=== PATIENT | male | born 1990 | race Caucasian/White ===

== ENCOUNTER 2024-01-14 15:13 | Emergency (ER) | payer OTHER, SELFPAY ==
--- NOTE | ~2024-01-14 | US_ITS ---
EXAMINATION: US VENOUS DUPLEX OF THE LOWER EXTREMITIES, BILATERAL CLINICAL INFORMATION: Bilateral lower extremity edema. Evaluate for deep vein thrombosis. COMPARISON: None available. TECHNIQUE: Ultrasound of the deep veins is performed from the hip to the calf with compression sonography and color and pulse Doppler assessment. Spectral analysis with color-flow imaging is performed. FINDINGS: RIGHT: There is normal venous compression and respiratory variation and augmented flow. The visualized common femoral vein, superficial femoral vein, profunda femoral vein, popliteal vein, and the trifurcation region shows no evidence of deep venous thrombosis. The right peroneal vein is not well-visualized. There is no significant popliteal fossa cyst. Mildly prominent right inguinal lymph node. Lower leg subcutaneous edema. LEFT: There is normal venous compression and respiratory variation and augmented flow. The visualized common femoral vein, superficial femoral vein, profunda femoral vein, popliteal vein, and the trifurcation region shows no evidence of deep venous thrombosis. There is no significant popliteal fossa cyst. Mildly prominent left inguinal lymph node. Lower leg subcutaneous edema. If the patient's symptoms persist, followup ultrasound in 5 days 7 days might be of value to exclude proximal propagation from a non-visualized calf vein. US/US venous duplex LE BI IMPRESSION: 1. No DVT demonstrated in the bilateral lower extremity. 2. Bilateral lower leg subcutaneous edema.
--- NOTE | ~2024-01-14 | XR_ITS ---
EXAMINATION: XR CHEST CLINICAL INFORMATION: Shortness of breath. COMPARISON: None available. TECHNIQUE: 2 views of the chest were obtained. FINDINGS: The lungs are clear. The cardiomediastinal silhouette is normal in size. There is no pleural effusion or pneumothorax. No acute osseous abnormality. XR/XR chest 2V IMPRESSION: No acute cardiopulmonary findings.
[2024-01-14 15:17] VITALS: BP 137/99; PULSE 92; RESP 18; TEMP 36.6; O2SAT 98; BMI 34.6
--- NOTE | 2024-01-14 15:17 | ED_ITS ---
HPI - General Adult General Chief complaint: General Medical Stated complaint: SOB Time Seen by Provider: 01/14/24 16:14 Source: patient Mode of arrival: ambulatory Limitations: no limitations History of Present Illness HPI narrative: Patient is 33 years old otherwise healthy nonalcoholic been having anasarca for last 3 months been to PCP and [facility] had a detailed workup without final diagnosis noticed to have low albumin level etiology not very clear patient not aware of the cause comes here as swelling is getting worse now spreading to the abdomen feels exhausted no significant shortness of breath was given diuretic for short time has not seen any keno clerk or supervisor vegetable farming yet Related Data Allergies Allergy/AdvReac Type Severity Reaction Status Date / Time No Known Allergies Allergy Verified 01/14/24 15:23 Review of Systems 2 Review of Systems: Yes all other systems are reviewed and are negative FORMERLY [facility], [facility]1983 Social History Social History Smoked in Last 30 Days: No Use of substances other than those prescribed or required for medical reasons: No Advance Directives: No Advance Directives Information Provided: No Do you have a plan to hurt others: No Plan Physical Exam ED Vital Signs: Vital Signs - 24 hr 01/14/24 15:17 01/14/24 17:37 01/14/24 18:36 Temperature 97.8 F 97.9 F Pulse Rate 92 92 Respiratory Rate 18 15 Blood Pressure 137/99 H 135/91 H 135/91 H Pulse Oximetry 98 97 Oxygen Delivery Method Room Air Room Air 01/14/24 19:24 Temperature 98 F Pulse Rate 67 Respiratory Rate 16 Blood Pressure 130/72 Pulse Oximetry 99 Oxygen Delivery Method Room Air BMI result Body Mass Index 34.6 Appearance: Alert. Oriented X3. No acute distress. Eyes: PERRLA, No Nystagmus no pallor or icterus ENT: Pharynx normal. Oral Mucosa moist Neck: Normal inspection. Neck supple. CVS: Normal heart rate and rhythm. Pulses normal. Respiratory: No respiratory distress. Equal air entry bilateral, no wheezing/rales/rhonchi Abdomen: Soft and nontender. Bowel sounds are present, no mass palpable, no CVA tenderness Skin: Skin warm and dry. Normal skin color. Normal skin turgor. Extremities: 3+ lower extremity edema. No calf tenderness Neuro: Oriented X 3. No motor deficit. No sensory deficit.No cerebellar signs , cranial nerves II-XII intact Course Course Course Narrative: RME performed by Rylie Smiley PA-C. Patient is a 33 year old assigned male at presenting to the emergency department with bilateral lower extremity swelling and abdominal swelling over the last 3 months. Patient states that he is having worsening shortness of breath. Patient was seen at [facility] who recommended he get an echocardiogram and suggested it may be his thyroid. Patient states that he was also seen at [facility] and they told him everything was fine. No drug or alcohol use. Sent here from [facility] urgent care. Detailed physical exam and review of systems are deferred to the weight engineer. Labs, imaging, and swabs ordered. Patient placed back in the waiting room pending room availability and results. Medications Administered Discontinued Medications Generic Name Dose Route Start Last Admin Trade Name Freq PRN Reason Stop Dose Admin Furosemide 20 mg 01/14/24 18:11 01/14/24 18:36 Furosemide 20 Mg Tablet PO 01/14/24 18:12 20 mg ONCE ONE Administration Protocol Medical Decision Making Medical Decision Making [facility] Narrative: Patient with generalized anasarca with significant hypoalbuminemia etiology not very clear according to patient he does not have any kidney or liver problems in the past. Will check the urine to see whether he has a proteinuria and check l old records Patient labs showed heavy proteinuria likely nephrotic range as the cause for anasarca . Case discussed with supervisor vegetable farming , will see him in office as outpatient Differential Diagnosis Differential Diagnoses: The differential diagnosis associated with the presentation includes Hepatic failure/nephrotic syndrome/dependent edema Lab Data [facility] Lab Attestation statement: I reviewed the patient's lab results. 01/14/24 15:35 01/14/24 15:35 Labs: Lab Results 01/14/24 01/14/24 Range/Units 15:35 18:26 WBC 10.0 (4.8-10.8) X10*3/uL RBC 4.64 (4.60-5.80) X10*6/uL Hgb 14.3 (14.0-18.0) g/dl Hct 42.4 (42.0-52.0) % MCV 91.4 (80.0-98.0) fL MCH 30.8 (27.0-33.0) pg MCHC 33.7 (31.0-36.0) g/dl RDW 12.9 (11.0-16.0) % Plt Count 254 (160-400) X10*3/uL MPV 11.0 (9.4-12.4) fL Immature Gran % (Auto) 0.3 (0.0-0.4) % Neut % (Auto) 64.6 (45-73) % Lymph % (Auto) 26.0 (20-40) % Coleman % (Auto) 4.9 (2-11) % Eos % (Auto) 3.8 (0-4) % Baso % (Auto) 0.4 (0-2) % Lymph # (Auto) 2.6 (1.2-4.9) X10*3/uL Coleman # (Auto) 0.5 (0.1-1.2) X10*3/uL Eos # (Auto) 0.4 (0.0-0.4) X10*3/uL Baso # (Auto) 0.0 (0.0-0.2) X10*3/uL Abs Immat Gran (auto) 0.03 (0.00-0.03) X10*3/uL Absolute Neuts (auto) 6.5 (2.0-8.3) x10*3/uL Absolute Nucleated RBC 0.000 (0.0-0.012) X10*3/uL Nucleated RBC % (auto) 0.0 (0.0-0.2) /100WBC Sodium 141 (135-145) mmol/L Potassium 4.3 (3.3-5.1) mmol/L Chloride 105 (96-108) mmol/L Carbon Dioxide 30 H (22-29) mmol/L Anion Gap 10 L (12-20) BUN 12 (9-16) mg/dL Creatinine 0.93 (0.5-1.4) mg/dL Estim Creat Clear Calc 136.9 Estimated GFR > 60 Random Glucose 85 (60-115) mg/dL Calcium 8.2 L (8.4-10.2) mg/dL Magnesium 1.9 (1.6-2.6) mg/dL Total Bilirubin 0.2 (0.0-1.0) mg/dL AST 23 (5-37) U/L ALT 18 (0-40) U/L Alkaline Phosphatase 90 (39-117) U/L Ammonia 26 (13-55) umol/L Troponin I High Sens 7.7 (<3.5-35.0) ng/L B-Natriuretic Peptide 15 (<100) pg/mL Total Protein 4.2 L (6.5-8.0) g/dL Albumin 1.5 L (3.5-5.0) g/dL TSH 1.03 (0.32-4.0) uIU/mL Urine Color Dark Yellow Urine Appearance Clear Urine pH 6.0 (5.0-9.0) Ur Specific Pierre >= 1.030 H (1.005-1.025) Urine Protein >=1000 (4+) H (Neg-Trace) mg/dL Urine Glucose (UA) Negative (Negative) mg/dL Urine Ketones Negative (Negative) mg/dL Urine Blood Moderate (2+) H (Negative) Urine Nitrite Negative (Negative) Ur Leukocyte Esterase Negative (Negative) Urine RBC 11-20 H (0-2) /HPF Urine WBC 0-5 (0-5) /HPF Ur Squamous Epith Cells 6-10 (0-2) /HPF Urine Bacteria None Seen (None Seen) Hyaline Casts >20 (0-2) /LPF External Record Review External record reviewed: Outpatient record Patient's medical records from [facility] on 12/08/[address] scan of the abdominal was negative workup showed 2+ proteinuria BNP was 51 serum protein was 4.6 albumin was 2.0 Discharge Plan Discharge Clinical Impression: Nephrotic syndrome Patient Disposition: Home, Self-Care Instructions: Edema (ED) Additional Instructions: Increase protein intake You have to see kidney specialist as soon as possible for further management as you are losing protein in the urine Keep your legs elevated Referrals: Mark Polanco MD [Physician] - 1 week Interventions: ED Discharge Assessment Last Done: 01/14/24 19:24 Discharge Date/Time: 01/14/24 19:25 Print Language: Tuvaluan
--- NOTE | 2024-01-14 15:21 | ECG_ITS ---
Test Reason : SOB Blood Pressure : / mmHG Vent. Rate : 087 BPM Atrial Rate : 087 BPM P-R Int : 156 ms QRS Dur : 090 ms QT Int : 354 ms P-R-T Axes : 060 035 047 degrees QTc Int : 425 ms Normal sinus rhythm Normal ECG When compared with ECG of 27-JAN-2009 08:48, ST no longer elevated in Anterior leads Referred By: Rylie Smiley Electronically Signed By:JUDY MEDELLIN MD
[2024-01-14 15:40] LABS: MANUAL DIFF FLAG NO
[2024-01-14 15:47] LABS: Basophils Percent Auto 0.4 % (0-2); Eosinophils Absolute Auto 0.4 X10*3/uL (0.0-0.4); Eosinophils Percent Auto 3.8 % (0-4); Hematocrit 42.4 % (42.0-52.0); Hemoglobin 14.3 g/dl (14.0-18.0); Imm Gran Abs Auto 0.03 X10*3/uL (0.00-0.03); Imm Gran Pct Auto 0.3 % (0.0-0.4); Lymphocytes Absolute Auto 2.6 X10*3/uL (1.2-4.9); Mean Corpuscular HGB Conc 33.7 g/dl (31.0-36.0); Mean Corpuscular Hemoglobin 30.8 pg (27.0-33.0); Mean Corpuscular Volume 91.4 fL (80.0-98.0); Monocytes Absolute Auto 0.5 X10*3/uL (0.1-1.2); Monocytes Percent Auto 4.9 % (2-11); Neutrophils Absolute Auto 6.5 x10*3/uL (2.0-8.3); Neutrophils Percent Auto 64.6 % (45-73); Platelet Count 254 X10*3/uL (160-400); Red Blood Count 4.64 X10*6/uL (4.60-5.80); Red Cell Distribution Width 12.9 % (11.0-16.0)
[2024-01-14 15:55] LABS: Ammonia 26 umol/L (13-55)
[2024-01-14 16:08] LABS: Alanine Aminotransferase 18 U/L (0-40); Albumin Level 1.5 g/dL (3.5-5.0); Alkaline Phosphatase 90 U/L (39-117); Anion Gap 10 (12-20); Aspartate Amino Transferase 23 U/L (5-37); Bilirubin Total 0.2 mg/dL (0.0-1.0); Blood Urea Nitrogen 12 mg/dL (9-16); Calcium 8.2 mg/dL (8.4-10.2); Carbon Dioxide 30 mmol/L (22-29); Chloride 105 mmol/L (96-108); Creatinine Clr Calc Pharmacy 136.9; Estimated Glomerular Filt Rate > 60; Glucose Random 85 mg/dL (60-115); Magnesium 1.9 mg/dL (1.6-2.6); Potassium 4.3 mmol/L (3.3-5.1); Sodium 141 mmol/L (135-145); Total Protein 4.2 g/dL (6.5-8.0)
[2024-01-14 16:10] LABS: Troponin-I High Sensitivity 7.7 ng/L (<3.5-35.0)
[2024-01-14 16:23] LABS: B Type Natriuretic Peptide 15 pg/mL (<100)
[2024-01-14 16:24] LABS: TSH reflex Free T4 1.03 uIU/mL (0.32-4.0)
[2024-01-14 17:37] VITALS: BP 135/91; PULSE 92; RESP 15; TEMP 36.6; O2SAT 97
[2024-01-14 18:32] LABS: Appearance Urine Clear; Color Urine Dark Yellow; Glucose Urine UA Negative (Negative); Leukocyte Esterase Urine Negative (Negative); Nitrite Urine Negative (Negative); Specific Gravity - Urine >= 1.030 (1.005-1.025); UMIC TRIGGER UACC YES; Urine Blood Moderate (2+) (Negative); Urine Ketones Negative (Negative); Urine Protein >=1000 (4+) mg/dL (Neg-Trace)
[2024-01-14 18:36] VITALS: BP 135/91
[2024-01-14] MEDS: Furosemide 20 MG TABLET PO (18:36)
[2024-01-14 18:44] LABS: Bacteria Urine None Seen (None Seen); Hyaline Casts Urine >20 /LPF (0-2); WBC Urine 0-5 /HPF (0-5)
[2024-01-14 19:24] VITALS: BP 130/72; PULSE 67; RESP 16; TEMP 36.6; O2SAT 99
== END 2024-01-14 19:25 | disposition home or self-care (01) ==
PROVIDERS: Physician Assistant Medical; Emergency Provider Internal Medicine
DX: N04.9 Nephrotic syndrome with unspecified morphologic changes (principal)
CPT/HCPCS: 36415; 71046; 80053; 81001; 82140; 83735; 83880; 84443; 84484; 85025; 93005; 93970; 99284; 99285

== ENCOUNTER → 2024-01-14 15:21 | Outpatient (BNV) | payer OTHER, SELFPAY | PROVIDERS: Emergency Provider Internal Medicine; Visit Provider Internal Medicine Cardiovascular Disease | DX: R06.02 Shortness of breath (principal) | CPT/HCPCS: 93010 ==

== ENCOUNTER 2024-01-20 14:44 | Outpatient (REF) | payer OTHER, SELFPAY ==
[2024-01-20 15:53] LABS: MANUAL DIFF FLAG NO
[2024-01-20 18:08] LABS: INTERNATIONAL NORM RATIO 0.9 (0.9-1.1)
[2024-01-20 18:34] LABS: Basophils Absolute Auto 0.1 X10*3/uL (0.0-0.2); Basophils Percent Auto 0.7 % (0-2); Eosinophils Absolute Auto 0.3 X10*3/uL (0.0-0.4); Eosinophils Percent Auto 4.5 % (0-4); Hematocrit 44.1 % (42.0-52.0); Hemoglobin 14.9 g/dl (14.0-18.0); Imm Gran Abs Auto 0.03 X10*3/uL (0.00-0.03); Imm Gran Pct Auto 0.4 % (0.0-0.4); Lymphocytes Absolute Auto 2.3 X10*3/uL (1.2-4.9); Lymphocytes Percent Auto 29.7 % (20-40); Mean Corpuscular HGB Conc 33.8 g/dl (31.0-36.0); Mean Corpuscular Hemoglobin 31.3 pg (27.0-33.0); Mean Corpuscular Volume 92.6 fL (80.0-98.0); Monocytes Absolute Auto 0.5 X10*3/uL (0.1-1.2); Monocytes Percent Auto 5.9 % (2-11); Neutrophils Absolute Auto 4.5 x10*3/uL (2.0-8.3); Neutrophils Percent Auto 58.8 % (45-73); Platelet Count 271 X10*3/uL (160-400); Red Blood Count 4.76 X10*6/uL (4.60-5.80); Red Cell Distribution Width 12.7 % (11.0-16.0); White Blood Count 7.6 X10*3/uL (4.8-10.8)
[2024-01-20 19:03] LABS: TSH reflex Free T4 1.28 uIU/mL (0.32-4.0)
[2024-01-20 19:06] LABS: Creatinine Urine 162.03 mg/dL
[2024-01-20 19:11] LABS: Anion Gap 10 (12-20); Blood Urea Nitrogen 14 mg/dL (9-16); Carbon Dioxide 28 mmol/L (22-29); Chloride 103 mmol/L (96-108); Estimated Glomerular Filt Rate > 60; Potassium 3.8 mmol/L (3.3-5.1); Sodium 137 mmol/L (135-145)
[2024-01-20 19:44] LABS: Protein/Creatinine Ratio, Ur 11.65 (<0.2); Total Protein Urine Random 1887 mg/dL (<12)
[2024-01-21 03:35] LABS: HIV Num 1 0.04 S/CO (0.00-0.99); Hepatitis B Core Antibody Nonreactive (Nonreactive); ~HepC Num1 0.16 S/CO (0.00-0.79); ~Hepatitis C Antibody Nonreactive (Nonreactive)
[2024-01-21 03:36] LABS: HBsAGNum1 0.15 S/CO (0.00-0.99); HIV AB/AG Nonreactive (Nonreactive); Hepatitis B Surface Antigen Negative (Negative)
[2024-01-21 05:37] LABS: Estimated Average Glucose 97 mg/dL
[2024-01-23 13:44] LABS: Anti DNA DS Antibody <1 IU/mL; Anti Glomerular Basement Memb <1.0 AI; Myeloperoxidase Antibody <1.0 AI; Proteinase 3 PR3 Antibodies <1.0 AI
[2024-01-23 21:34] LABS: Streptolysin O Antibody <20 IU/mL (<200)
[2024-01-24 06:43] LABS: Complement C3 164 mg/dL (82-185)
[2024-01-24 09:38] LABS: Anti Nuclear Antibody Screen POSITIVE (NEGATIVE)
[2024-01-24 10:44] LABS: Neutrophil Cyto Ab Screen NEGATIVE (NEGATIVE)
[2024-01-25 16:18] LABS: IgA 185 mg/dL (47-310); IgG 383 mg/dL (600-1640); IgM 74 mg/dL (50-300)
[2024-01-31 10:48] LABS: Phospholipase A2 IgG ELISA <4 RU/mL; Phospholipase A2 IgG IFA NEGATIVE (NEGATIVE)
== END 2024-01-20 14:45 | disposition home or self-care (01) ==
LOC: HO.LAB 14:44
PROVIDERS: Visit Provider Internal Medicine Nephrology
DX: Z11.4 Encounter for screening for human immunodeficiency virus [HIV] (principal); R80.8 Other proteinuria; N04.9 Nephrotic syndrome with unspecified morphologic changes
CPT/HCPCS: 80051; 82565; 82570; 82784; 83036; 83520; 84156; 84443; 84520; 85025; 85610; 86021; 86036; 86038; 86039; 86060; 86160; 86225; 86255; 86334; 86335; 86704; 86803; 87340; 87389; 99202

== ENCOUNTER 2024-01-20 14:44 | Outpatient (AMB) | payer OTHER, SELFPAY ==
--- NOTE | 2024-01-20 14:40 | HO.NEPHOV_ITS ---
Vital Signs 01/20/24 14:48 Height 6 ft 1 in Weight 233 lb 6 oz BMI 30.8 BP 130/80 Blood Pressure Location Lt brachial Position Sitting Pulse 91 Pulse Source Pulse Oximeter Pulse Oximetry (%) 96 Oxygen Delivery Method Room Air Intake Visit Reasons: [facility] Discharger/ LM Kn[employer] Press Hand Required: No Accompanied by: Self / Same As Patient Allergies No Known Allergies Allergy (Verified 01/20/24 14:51) HPI Comments Details: I had the privilege of seeing Wayne who has a 33 years old healthy nonalcoholic who has been having anasarca for last 3 months. He had been seen by PCP , [facility], [place] urgent care as well as in [facility] emergency room. He was told by physicians in [facility] that his thyroid functions were off and was started on levothyroxine. He continued to have workup without final diagnosis but noticed to have low albumin level . Etiology was not very clear but finally patient presented to [facility] Emergency room where he was found to have nephrotic range proteinuria and was determined that it is the cause of his anasarca. As per the patient he had two separate occasions very was given diuretics, once for 5 days and 1 time dose on another occasion. He denies any joint pains, skin rashes, epistaxis, sinusitis, sore throat, photosensitivity, history of drug use, history of hepatitis or HIV. He has no history of coronary artery disease, congestive heart failure, peripheral arterial disease, vascular disease, history of excessive nonsteroidal anti-inflammatory medication use, night sweats, fever. He has not traveled outside [place] recently. All these symptoms have been getting worse over the last 3 months to a point now that he has penile swelling, scrotal swelling and subcutaneous edema on the flanks, back and abdomen. He was referred to me from [facility] Emergency room and is seen today in consultation. [facility] Surgical History (Updated 01/20/24 @ 14:50 by Renee Arredondo MA) Hx of tonsillectomy Social History (Updated 01/20/24 @ 14:51 by Renee Arredondo MA) Alcohol intake: never Patient Tobacco Use Status: Never used Tobacco e-Cigarette/Vaping Use: Currently Using Physical Exam Vital Signs: Last Vital Signs Pulse 91 01/20/24 14:48 BP 130/80 01/20/24 14:48 Pulse Ox 96 01/20/24 14:48 Oxygen Delivery Method Room Air 01/20/24 14:48 BMI result Body Mass Index 30.8 Const General: comfortable and no acute distress Orientation/consciousness: patient oriented x3 HEENT Head: Yes normocephalic Mouth: Normal oral and palatal mucosa present Eyes EOM: EOMs intact bilaterally Neck Neck: Yes supple Resp Auscultation: clear to auscultation bilaterally Cardio Jugular venous distension: no JVD Rate: regular rate GI Palpation (GI): Soft to palpation Auscultation: normal bowel sounds General: Yes no CVA tenderness Back/Spine/Pelvis Back: no CVA tenderness Skin General skin exam: no rashes or lesions noted Neuro General: patient oriented x3 and moves all extremities Extrem General: Yes edema Results Reviewed Nephrology Results: Hgb 14.9 g/dl (14.0-18.0) 01/20/24 WBC 7.6 X10*3/uL (4.8-10.8) 01/20/24 Plt Count 271 X10*3/uL (160-400) 01/20/24 Sodium 137 mmol/L (135-145) 01/20/24 Potassium 3.8 mmol/L (3.3-5.1) 01/20/24 Chloride 103 mmol/L (96-108) 01/20/24 Carbon Dioxide 28 mmol/L (22-29) 01/20/24 BUN 14 mg/dL (9-16) 01/20/24 Creatinine 0.85 mg/dL (0.5-1.4) 01/20/24 Calcium 8.2 mg/dL (8.4-10.2) L 01/14/24 Urine Protein >=1000 (4+) mg/dL (Neg-Trace) H 4 Urine Creatinine 162.03 mg/dL 01/20/24 Protein/Creatinin Ratio 11.65 (<0.2) H 01/20/24 Assessment & Plan Assessment & Plan (1) Proteinuria: Code(s): R80.9 - Proteinuria, unspecified Category: Medical Qualifiers: Proteinuria type: other Qualified Code(s): R80.8 - Other proteinuria (2) Nephrotic syndrome: Code(s): N04.9 - Nephrotic syndrome with unspecified morphologic changes Category: Medical Plan Wayne has nephrotic syndrome. He is 30 lb over his dry weight. His renal functions are normal. I ordered extensive workup including imaging, immunology, serology as well as renal biopsy. I started him on diuretics, ARB, prednisone along with PPI. He was also asked to cut back salt in the diet. He should be weighing himself every day. Detection of his recent thyroid dysfunction most likely is due to his nephrotic syndrome but further workup should be done. He is going to repeat his electrolytes and renal functions in a week again after initiation of all the medications. All these have been discussed in detail. Patient has expressed his understanding. All questions answered. Follow-up appointment given. Time spent for retrieving data, clinical encounter and documentation 61 minutes. Orders: Orders Anti Glomerular Basement Memb 01/20/24 R80.8 - Other proteinuria Complement C4 01/20/24 R80.8 - Other proteinuria Streptolysin O Antibody 01/20/24 R80.8 - Other proteinuria Phospholipase A2 Receptor Pnl 01/20/24 R80.8 - Other proteinuria Immunofixation, Random Urine 01/20/24 R80.8 - Other proteinuria Hemoglobin A1c 01/20/24 R80.8 - Other proteinuria Hepatitis C Antibody Reflex 01/20/24 R80.8 - Other proteinuria Hepatitis B Surface Antigen 01/20/24 R80.8 - Other proteinuria HIV Ab/Ag 01/20/24 R80.8 - Other proteinuria CT biopsy renal LT 01/20/24 R80.8 - Other proteinuria Protein Creatinine Ratio, Ur 01/20/24 R80.8 - Other proteinuria Electrolytes 01/20/24 R80.8 - Other proteinuria Creatinine 01/20/24 R80.8 - Other proteinuria SCOTT Reflex Titer and Pattern 01/20/24 R80.8 - Other proteinuria Anti DNA DS Antibody 01/20/24 R80.8 - Other proteinuria Neutrophil Cytoplasma Ab 01/20/24 R80.8 - Other proteinuria Myeloperoxidase Antibody 01/20/24 R80.8 - Other proteinuria Proteinase 3 PR3 Antibodies 01/20/24 R80.8 - Other proteinuria Complement C3 01/20/24 R80.8 - Other proteinuria Immunofixation Pnl, Serum 01/20/24 R80.8 - Other proteinuria Complete Blood Count Auto Diff 01/20/24 R80.8 - Other proteinuria Prothrombin Time INR 01/20/24 R80.8 - Other proteinuria TSH reflex Free T4 01/20/24 R80.8 - Other proteinuria Hepatitis B Core Antibody 01/20/24 R80.8 - Other proteinuria Blood Urea Nitrogen 01/20/24 R80.8 - Other proteinuria Creatinine 01/20/24 R80.8 - Other proteinuria Blood Urea Nitrogen 01/20/24 R80.8 - Other proteinuria Electrolytes 01/20/24 R80.8 - Other proteinuria Medications: New losartan 25 mg PO DAILY 30 tabs 0RF furosemide (Lasix) 40 mg PO DAILY 30 tabs 0RF prednisone 60 mg (6 x 10 mg) PO DAILY 180 tabs 0RF 30 days omeprazole 20 mg PO DAILY 30 caps 0RF Coding Level of Care Code New Pt Level 5 (95557) Diagnoses Other proteinuria R80.8 Proteinuria type: other Nephrotic syndrome N04.9
[2024-01-20 14:48] VITALS: BP 130/80; PULSE 91; O2SAT 96; BMI 30.8
== END 2024-01-20 15:25 | disposition home or self-care (01) ==
PROVIDERS: Visit Provider Internal Medicine Nephrology
DX: N04.9 Nephrotic syndrome with unspecified morphologic changes (principal); R80.8 Other proteinuria
CPT/HCPCS: 99205

== ENCOUNTER 2024-01-26 14:50 | Outpatient (REF) | payer OTHER, SELFPAY ==
[2024-01-26 16:38] LABS: Blood Urea Nitrogen 12 mg/dL (9-16); Estimated Glomerular Filt Rate > 60
== END 2024-01-26 14:51 | disposition home or self-care (01) ==
LOC: HO.LAB 14:50
PROVIDERS: PCP Physician Assistant; Visit Provider Internal Medicine Nephrology
DX: R80.8 Other proteinuria (principal)
CPT/HCPCS: 36415; 82565; 84520

== ENCOUNTER 2024-01-27 15:12 | Outpatient (AMB) | payer OTHER, SELFPAY ==
--- NOTE | 2024-01-27 15:18 | HO.NEPHOV_ITS ---
Vital Signs 01/27/24 15:19 Height 6 ft 1 in Weight 214 lb BMI 28.2 BP 118/82 Blood Pressure Location Rt brachial Position Sitting Pulse 77 Pulse Source Pulse Oximeter Pulse Oximetry (%) 94 Oxygen Delivery Method Room Air Intake Visit Reasons: Proteinuria/ 1 week fu/ Confirmed Advertising Manager Required: No Accompanied by: Self / Same As Patient Allergies No Known Allergies Allergy (Verified 01/27/24 15:21) HPI Comments Details: I had the privilege of seeing Wayne who has a 33 years old healthy nonalcoholic who has been having anasarca for last 3 months. He had been seen by PCP , [facility], [place] urgent care as well as in [facility] emergency room. He was told by physicians in [facility] that his thyroid functions were off and was started on levothyroxine. He continued to have workup without final diagnosis but noticed to have low albumin level . Etiology was not very clear but finally patient presented to [facility] Emergency room where he was found to have nephrotic range proteinuria and was determined that it is the cause of his anasarca. As per the patient he had two separate occasions very was given diuretics, once for 5 days and 1 time dose on another occasion. He denies any joint pains, skin rashes, epistaxis, sinusitis, sore throat, photosensitivity, history of drug use, history of hepatitis or HIV. He has no history of coronary artery disease, congestive heart failure, peripheral arterial disease, vascular disease, history of excessive nonsteroidal anti-inflammatory medication use, night sweats, fever. He has not traveled outside [place] recently. All these symptoms have been getting worse over the last 3 months to a point now that he has penile swelling, scrotal swelling and subcutaneous edema on the flanks, back and abdomen. He was found to have nephrotic range proteinuria and was started on Prednisone, losartan and lasix. [facility] Surgical History Hx of tonsillectomy Social History Alcohol intake: never Patient Tobacco Use Status: Never used Tobacco e-Cigarette/Vaping Use: Currently Using Physical Exam Vital Signs: Last Vital Signs Pulse 77 01/27/24 15:19 BP 118/82 01/27/24 15:19 Pulse Ox 94 01/27/24 15:19 Oxygen Delivery Method Room Air 01/27/24 15:19 BMI result Body Mass Index 28.2 Const General: comfortable and no acute distress Orientation/consciousness: patient oriented x3 HEENT Head: Yes normocephalic Mouth: Normal oral and palatal mucosa present Eyes EOM: EOMs intact bilaterally Neck Neck: Yes supple Resp Auscultation: clear to auscultation bilaterally Cardio Jugular venous distension: no JVD Rate: regular rate GI Palpation (GI): Soft to palpation Auscultation: normal bowel sounds General: Yes no CVA tenderness Back/Spine/Pelvis Back: no CVA tenderness Skin General skin exam: no rashes or lesions noted Neuro General: patient oriented x3 and moves all extremities Extrem General: Yes edema Results Reviewed Nephrology Results: Hgb 14.9 g/dl (14.0-18.0) 01/20/24 WBC 7.6 X10*3/uL (4.8-10.8) 01/20/24 Plt Count 271 X10*3/uL (160-400) 01/20/24 Sodium 137 mmol/L (135-145) 01/20/24 Potassium 3.8 mmol/L (3.3-5.1) 01/20/24 Chloride 103 mmol/L (96-108) 01/20/24 Carbon Dioxide 28 mmol/L (22-29) 01/20/24 BUN 12 mg/dL (9-16) 01/26/24 Creatinine 0.82 mg/dL (0.5-1.4) 01/26/24 Calcium 8.2 mg/dL (8.4-10.2) L 01/14/24 Urine Protein >=1000 (4+) mg/dL (Neg-Trace) H 4 Urine Creatinine 162.03 mg/dL 01/20/24 Protein/Creatinin Ratio 11.65 (<0.2) H 01/20/24 Assessment & Plan Assessment & Plan (1) Proteinuria: Code(s): R80.9 - Proteinuria, unspecified Category: Medical Qualifiers: Proteinuria type: other Qualified Code(s): R80.8 - Other proteinuria (2) Anasarca associated with disorder of kidney: Code(s): N04.9 - Nephrotic syndrome with unspecified morphologic changes Category: Medical Plan Wayne has nephrotic syndrome. His renal functions are normal. workup so far negative. Some results pending. Renal biopsy next Tuesday. C/W prednsione and PPI. I increased his lasix to 40 mg bid & losartan 25 mg bid. He was also asked to cut back salt in the diet. He should be weighing himself every day. Detection of his recent thyroid dysfunction most likely is due to his nephrotic syndrome but further workup should be done. He is going to repeat his electrolytes and renal functions in 2 weeks . All these have been discussed in detail. Patient has expressed his understanding. All questions answered. Follow-up appointment given. Orders: Orders Electrolytes Today N04.9 - Nephrotic syndrome with unspecified morphologic changes, R80.8 - Other proteinuria Creatinine Today N04.9 - Nephrotic syndrome with unspecified morphologic changes, R80.8 - Other proteinuria Blood Urea Nitrogen Today N04.9 - Nephrotic syndrome with unspecified morphologic changes, R80.8 - Other proteinuria Protein Creatinine Ratio, Ur Today N04.9 - Nephrotic syndrome with unspecified morphologic changes, R80.8 - Other proteinuria Medications: Changed From losartan 25 mg PO DAILY 30 tabs 0RF To losartan 25 mg PO BID 30 tabs 2RF From furosemide (Lasix) 40 mg PO DAILY 30 tabs 0RF To furosemide (Lasix) 40 mg PO BID 30 tabs 1RF Coding Level of Care Code Est Pt Level 4 (92615) Diagnoses Other proteinuria R80.8 Proteinuria type: other Anasarca associated with disorder of kidney N04.9
[2024-01-27 15:19] VITALS: BP 118/82; PULSE 77; O2SAT 94; BMI 28.2
== END 2024-01-27 15:52 | disposition home or self-care (01) ==
PROVIDERS: Visit Provider Internal Medicine Nephrology
DX: R80.8 Other proteinuria (principal); N04.9 Nephrotic syndrome with unspecified morphologic changes
CPT/HCPCS: 99214

== ENCOUNTER → 2024-01-27 15:12 | Outpatient (BNVA) | payer OTHER, SELFPAY | PROVIDERS: Visit Provider Internal Medicine Nephrology | DX: R80.8 Other proteinuria (principal); N04.9 Nephrotic syndrome with unspecified morphologic changes; Z79.899 Other long term (current) drug therapy | CPT/HCPCS: 99212 ==

== ENCOUNTER → 2024-01-31 08:53 | Day surgery (SDC) | payer OTHER, SELFPAY ==
--- NOTE | ~2024-01-31 | CT_ITS ---
Nephrotic range proteinuria PROCEDURES: 1. Limited preprocedure CT of the abdomen. Permanent images saved in PACS. 2. CT-guided nontargeted biopsy of the left kidney. 3. Limited preprocedure CT of the abdomen. Permanent images saved in PACS. CLINICIANS: Reji Park PA-C MEDICATIONS: -Versed 1 mg, Fentanyl 50 mcg, and lidocaine 1% 10 mL SQ -Antibiotics: None -For additional details, please see nursing flowsheet. COMPLICATIONS: None ESTIMATED BLOOD LOSS: < 5 ml CONTRAST: None SPECIMENS: 3 x 18 g cores were placed in saline MODERATE SEDATION TIME: 25 min PROCEDURE NOTE: The procedure, risks, benefits, and alternatives were carefully explained to the patient and written informed consent was obtained. The patient was placed prone on the CT table. A timeout was performed. A limited CT of the abdomen was performed to localize the left kidney and choose appropriate needle entry and trajectory. The patient was prepped and draped in usual sterile fashion. The skin and deeper soft tissues were anesthetized with lidocaine. Under CT guidance, a 17 gague trocar needle was advanced to the left kidney. An 18 gauge biopsy device was inserted through the trocar needle and into the left lower pole of the kidney. A total of 3, 18 gague cores were performed. The specimens were placed in saline. A Gelfoam slurry was then administered through the trocar needle and into the kidney. The needle was removed. A dry dressing was applied and secured with Tegaderm. There were no immediate complications. The patient was stable after the procedure and was transferred to the post anesthesia care unit. The procedure was done under moderate sedation with a dedicated nurse for monitoring of vital signs. CT/CT biopsy renal LT Impression: CT-guided nontargeted left renal biopsy This procedure was performed by Reji Park PA-C and supervised by Dr. Jarvis.
[2024-01-31 09:50] VITALS: BMI 26.0
[2024-01-31 09:51] VITALS: BP 118/77; PULSE 95; RESP 16; TEMP 37.4; O2SAT 96
--- NOTE | 2024-01-31 10:12 | MHC.SHP ---
Pre-Procedural Eval Section A - 24 Hr Update-Section A only Date of Service: 01/31/24 Section B - Complete if H&P > 30 days Chief Complaint: LEFT KIDNEY,PROTEINURIA Details of Present Illness: 33 y/o man with nephrotic range proteinuria who presents for a renal biopsy Relevant Family History (Specify if Yes): No Relevant Social History: None Present Medications: see Short Stay Collaborative assessment Medical History: No relevant PMH History of Previous Operations: No relevant previous surgery Allergies: Allergies Allergy/AdvReac Type Severity Reaction Status Date / Time No Known Allergies Allergy Verified 01/31/24 09:18 Review of Systems Sugical H&P ROS: Negative: Cardiovascular and Yes, Specify: Respiratory (cough) and Integumentary (edema) Exam Surgical H&P Exam: Normal: Heart, Normal: Lungs, Normal: Abdomen, Normal: Skin and Normal: Neurological and Not Evaluated: HEENT Plan Diagnosis/Plan: Unchanged I have reviewed the history and physical and performed a pertinent physical examination on my patient. No changes have occurred unless specified. Non-targeted renal biopsy Time Spent With Patient Time: Total time managing care of this patient today ____ minutes.
[2024-01-31] MEDS: Lidocaine HCl 1 % MPF 30 ML VIAL 10 ML SUBCUT (11:22)
== END | disposition home or self-care (01) ==
PROVIDERS: Physician Assistant Surgical; Radiology Vascular & Interventional Radiology; Visit Provider Internal Medicine Nephrology
DX: R80.8 Other proteinuria (principal); N04.9 Nephrotic syndrome with unspecified morphologic changes; R60.1 Generalized edema; E07.9 Disorder of thyroid, unspecified
CPT/HCPCS: 50200; 77012; 86850; 86900; 86901; 88300; 88305; 88313; 88346; 88348; 88350; 99152; 99153; J2250; J2310; J3010

== ENCOUNTER → 2024-01-31 10:14 | Outpatient (BNV) | payer OTHER, SELFPAY | PROVIDERS: Visit Provider Physician Assistant Surgical | DX: R80.8 Other proteinuria (principal) | CPT/HCPCS: 50200; 77012 ==

== ENCOUNTER 2024-02-06 15:47 | Outpatient (REF) | payer OTHER, SELFPAY ==
[2024-02-06 17:42] LABS: Anion Gap 16 (12-20); Blood Urea Nitrogen 17 mg/dL (9-16); Carbon Dioxide 27 mmol/L (22-29); Chloride 100 mmol/L (96-108); Estimated Glomerular Filt Rate > 60; Potassium 3.9 mmol/L (3.3-5.1); Sodium 139 mmol/L (135-145)
[2024-02-06 17:51] LABS: Creatinine Urine 159.28 mg/dL
[2024-02-06 18:22] LABS: Protein/Creatinine Ratio, Ur 1.76 (<0.2); Total Protein Urine Random 281 mg/dL (<12)
== END 2024-02-06 15:48 | disposition home or self-care (01) ==
LOC: HO.LAB 15:47
PROVIDERS: PCP Physician Assistant; Visit Provider Internal Medicine Nephrology
DX: N04.9 Nephrotic syndrome with unspecified morphologic changes (principal); R80.8 Other proteinuria
CPT/HCPCS: 36415; 80051; 82565; 82570; 84156; 84520

== ENCOUNTER 2024-02-08 14:48 | Outpatient (AMB) | payer OTHER, SELFPAY ==
[2024-02-08 14:58] VITALS: BP 110/70; PULSE 100; O2SAT 93; BMI 25.0
--- NOTE | 2024-02-08 14:58 | HO.NEPHOV ---
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 He had been seen by PCP , [facility], [place] urgent care as well as in [facility] emergency room. He was told by physicians in [facility] that his thyroid functions were off and was started on levothyroxine. He continued to have workup without final diagnosis but noticed to have low albumin level . Etiology was not very clear but finally patient presented to [facility] Emergency room where he was found to have nephrotic range proteinuria and was determined that it is the cause of his anasarca. As per the patient he had two separate occasions very was given diuretics, once for 5 days and 1 time dose on another occasion. He denies any joint pains, skin rashes, epistaxis, sinusitis, sore throat, photosensitivity, history of drug use, history of hepatitis or HIV. He has no history of coronary artery disease, congestive heart failure, peripheral arterial disease, vascular disease, history of excessive nonsteroidal anti-inflammatory medication use, night sweats, fever. He has not traveled outside [place] recently. All these symptoms have been getting worse over the last 3 months to a point now that he has penile swelling, scrotal swelling and subcutaneous edema on the flanks, back and abdomen. He was found to have nephrotic range proteinuria and was started on Prednisone, losartan and lasix with remarkable improvement. He had a renal biopsy results of which is pending. He is diagnosed with pneumonia today and is prescribed with antibiotics. [facility] Surgical History Hx of tonsillectomy Social History Alcohol intake: never Patient Tobacco Use Status: Never used Tobacco e-Cigarette/Vaping Use: Currently Using Physical Exam Vital Signs: Last Vital Signs Pulse 100 02/08/24 14:58 BP 110/70 02/08/24 14:58 Pulse Ox 93 02/08/24 14:58 Oxygen Delivery Method Room Air 02/08/24 14:58 BMI result Body Mass Index 25.0 Const General: comfortable and no acute distress Orientation/consciousness: patient oriented x3 HEENT Head: Yes normocephalic Mouth: Normal oral and palatal mucosa present Eyes EOM: EOMs intact bilaterally Neck Neck: Yes supple Resp Auscultation: clear to auscultation bilaterally Cardio Jugular venous distension: no JVD Rate: regular rate GI Palpation (GI): Soft to palpation Auscultation: normal bowel sounds General: Yes no CVA tenderness Back/Spine/Pelvis Back: no CVA tenderness Skin General skin exam: no rashes or lesions noted Neuro General: patient oriented x3 and moves all extremities Extrem General: Yes no pedal edema Results Reviewed Nephrology Results: Hgb 14.9 g/dl (14.0-18.0) 01/20/24 WBC 7.6 X10*3/uL (4.8-10.8) 01/20/24 Plt Count 271 X10*3/uL (160-400) 01/20/24 Sodium 139 mmol/L (135-145) 02/06/24 Potassium 3.9 mmol/L (3.3-5.1) 02/06/24 Chloride 100 mmol/L (96-108) 02/06/24 Carbon Dioxide 27 mmol/L (22-29) 02/06/24 BUN 17 mg/dL (9-16) H 02/06/24 Creatinine 0.80 mg/dL (0.5-1.4) 02/06/24 Calcium 8.2 mg/dL (8.4-10.2) L 01/14/24 Urine Protein >=1000 (4+) mg/dL (Neg-Trace) H 01/14/24 Urine Creatinine 159.28 mg/dL 02/06/24 Protein/Creatinin Ratio 1.76 (<0.2) H 02/06/24 Assessment & Plan Assessment & Plan (1) Anasarca associated with disorder of kidney: Code(s): N04.9 - Nephrotic syndrome with unspecified morphologic changes Category: Medical (2) Proteinuria: Code(s): R80.9 - Proteinuria, unspecified Category: Medical Qualifiers: Proteinuria type: other Qualified Code(s): R80.8 - Other proteinuria Plan Wayne had nephrotic syndrome. His renal functions are normal. workup so far negative. Renal biopsy results pending. C/W prednsione and PPI. I reduced his lasix to 40 mg daily & C/W losartan 25 mg bid. He was also asked to cut back salt in the diet. He should be weighing himself every day. Detection of his recent thyroid dysfunction most likely is due to his nephrotic syndrome but further workup should be done. He is going to repeat his electrolytes and renal functions in 2 weeks . All these have been discussed in detail. Patient has expressed his understanding. All questions answered. Follow-up appointment given. Orders: Orders Creatinine Today N04.9 - Nephrotic syndrome with unspecified morphologic changes, R80.8 - Other proteinuria Electrolytes Today N04.9 - Nephrotic syndrome with unspecified morphologic changes, R80.8 - Other proteinuria Blood Urea Nitrogen Today N04.9 - Nephrotic syndrome with unspecified morphologic changes, R80.8 - Other proteinuria Protein Creatinine Ratio, Ur Today N04.9 - Nephrotic syndrome with unspecified morphologic changes, R80.8 - Other proteinuria Coding Level of Care Code Est Pt Level 4 (42981) Diagnoses Anasarca associated with disorder of kidney N04.9 Other proteinuria R80.8 Proteinuria type: other
== END 2024-02-08 15:25 | disposition home or self-care (01) ==
LOC: HO.HKA 14:48
PROVIDERS: PCP Physician Assistant; Visit Provider Internal Medicine Nephrology
DX: N04.9 Nephrotic syndrome with unspecified morphologic changes (principal); R80.8 Other proteinuria
CPT/HCPCS: 99214

== ENCOUNTER → 2024-02-08 14:48 | Outpatient (BNVA) | payer OTHER, SELFPAY | PROVIDERS: PCP Physician Assistant; Visit Provider Internal Medicine Nephrology | DX: N04.9 Nephrotic syndrome with unspecified morphologic changes (principal); R80.8 Other proteinuria | CPT/HCPCS: 99212 ==

== ENCOUNTER 2024-02-20 15:19 | Outpatient (REF) | payer OTHER, SELFPAY ==
[2024-02-20 16:46] LABS: Creatinine Urine 139.54 mg/dL; Protein/Creatinine Ratio, Ur 0.08 (<0.2); Total Protein Urine Random 11 mg/dL (<12)
[2024-02-20 16:54] LABS: Anion Gap 12 (12-20); Blood Urea Nitrogen 16 mg/dL (9-16); Carbon Dioxide 34 mmol/L (22-29); Chloride 98 mmol/L (96-108); Estimated Glomerular Filt Rate > 60; Potassium 3.8 mmol/L (3.3-5.1); Sodium 140 mmol/L (135-145)
[2024-02-20 17:05] LABS: TSH reflex Free T4 1.24 uIU/mL (0.32-4.0)
== END 2024-02-20 15:20 | disposition home or self-care (01) ==
LOC: HO.LAB 15:19
PROVIDERS: PCP Physician Assistant; Visit Provider Internal Medicine Nephrology
DX: N04.9 Nephrotic syndrome with unspecified morphologic changes (principal); R80.8 Other proteinuria; E03.9 Hypothyroidism, unspecified
CPT/HCPCS: 36415; 80051; 82565; 82570; 84156; 84443; 84520

== ENCOUNTER 2024-02-22 16:00 | Outpatient (AMB) | payer OTHER, SELFPAY ==
--- NOTE | 2024-02-22 16:04 | HO.NEPHOV ---
Vital Signs 02/22/24 16:05 Height 6 ft 1 in Weight 192 lb BMI 25.3 BP 110/80 Blood Pressure Location Rt brachial Position Sitting Pulse 94 Pulse Source Pulse Oximeter Pulse Oximetry (%) 95 Oxygen Delivery Method Room Air Intake Visit Reasons: Proteinuria/ 2 weeks fu/ LVM Director Special Education Required: No Accompanied by: Spouse Allergies No Known Allergies Allergy (Verified 02/22/24 16:07) HPI Comments Details: Wayne is a 33 years old healthy nonalcoholic who has been having anasarca for last 3 months. He had been seen by PCP , [facility], [place] urgent care as well as in [facility] emergency room. He was told by physicians in [facility] that his thyroid functions were off and was started on levothyroxine. He continued to have workup without final diagnosis but noticed to have low albumin level . Etiology was not very clear but finally patient presented to [facility] Emergency room where he was found to have nephrotic range proteinuria and was determined that it is the cause of his anasarca. As per the patient he had two separate occasions very was given diuretics, once for 5 days and 1 time dose on another occasion. He denies any joint pains, skin rashes, epistaxis, sinusitis, sore throat, photosensitivity, history of drug use, history of hepatitis or HIV. He has no history of coronary artery disease, congestive heart failure, peripheral arterial disease, vascular disease, history of excessive nonsteroidal anti-inflammatory medication use, night sweats, fever. He has not traveled outside [facility] recently. All these symptoms have been getting worse over the last 3 months to a point now that he has penile swelling, scrotal swelling and subcutaneous edema on the flanks, back and abdomen. He was found to have nephrotic range proteinuria and was started on Prednisone, losartan and lasix with remarkable improvement. He had a renal biopsy which showed acute podocytopathy with IgA. He also had thin membrane disease. He was treated with prednisone and ARB. His edema has gone and his proteinuria has resolved. He was accompanied by his during the office visit [facility] Surgical History Hx of tonsillectomy Social History Alcohol intake: never Patient Tobacco Use Status: Never used Tobacco e-Cigarette/Vaping Use: Currently Using Physical Exam Vital Signs: Last Vital Signs Pulse 94 02/22/24 16:05 BP 110/80 02/22/24 16:05 Pulse Ox 95 02/22/24 16:05 Oxygen Delivery Method Room Air 02/22/24 16:05 BMI result Body Mass Index 25.3 Const General: comfortable and no acute distress Orientation/consciousness: patient oriented x3 HEENT Head: Yes normocephalic Mouth: Normal oral and palatal mucosa present Eyes EOM: EOMs intact bilaterally Neck Neck: Yes supple Resp Auscultation: clear to auscultation bilaterally Cardio Jugular venous distension: no JVD Rate: regular rate GI Palpation (GI): Soft to palpation Auscultation: normal bowel sounds General: Yes no CVA tenderness Back/Spine/Pelvis Back: no CVA tenderness Skin General skin exam: no rashes or lesions noted Neuro General: patient oriented x3 and moves all extremities Extrem General: Yes no pedal edema Results Reviewed Nephrology Results: Hgb 14.9 g/dl (14.0-18.0) 01/20/24 WBC 7.6 X10*3/uL (4.8-10.8) 01/20/24 Plt Count 271 X10*3/uL (160-400) 01/20/24 Sodium 140 mmol/L (135-145) 02/20/24 Potassium 3.8 mmol/L (3.3-5.1) 02/20/24 Chloride 98 mmol/L (96-108) 02/20/24 Carbon Dioxide 34 mmol/L (22-29) H 02/20/24 BUN 16 mg/dL (9-16) 02/20/24 Creatinine 0.93 mg/dL (0.5-1.4) 02/20/24 Calcium 8.2 mg/dL (8.4-10.2) L 01/14/24 Protein/Creatinin Ratio 0.08 (<0.2) 02/20/24 Assessment & Plan Assessment & Plan (1) Anasarca associated with disorder of kidney: Code(s): N04.9 - Nephrotic syndrome with unspecified morphologic changes Category: Medical (2) Proteinuria: Code(s): R80.9 - Proteinuria, unspecified Category: Medical Qualifiers: Proteinuria type: other Qualified Code(s): R80.8 - Other proteinuria (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 His renal functions are normal. workup so far negative. Renal biopsy showed acute podo cytopathy. He also had IgA and thin membrane disease. His proteinuria has resolved. He is euvolemic. I discontinued his diuretics. C/W prednsione and PPI as well as current dose of ARB. He was also asked to cut back salt in the diet. He should be weighing himself every day. Detection of his recent thyroid dysfunction most likely is due to his nephrotic syndrome but further workup should be done. He is going to repeat his electrolytes and renal functions . All these have been discussed in detail. Patient has expressed his understanding. All questions answered. Follow-up appointment given. Orders: Orders Creatinine 02/22/24 N04.9 - Nephrotic syndrome with unspecified morphologic changes, R80.8 - Other proteinuria Electrolytes 02/22/24 N04.9 - Nephrotic syndrome with unspecified morphologic changes, R80.8 - Other proteinuria TSH reflex Free T4 3 Weeks N04.9 - Nephrotic syndrome with unspecified morphologic changes, R80.8 - Other proteinuria Protein Creatinine Ratio, Ur 02/22/24 N04.9 - Nephrotic syndrome with unspecified morphologic changes, R80.8 - Other proteinuria Blood Urea Nitrogen 02/22/24 N04.9 - Nephrotic syndrome with unspecified morphologic changes, R80.8 - Other proteinuria Medications: Refilled prednisone 60 mg (6 x 10 mg) PO DAILY 180 tabs 0RF omeprazole 20 mg PO DAILY 30 caps 4RF Discontinued furosemide (Lasix) Discontinued Reason: Doctor's Order 40 mg PO BID 30 tabs 1RF Coding Level of Care Code Est Pt Level 4 (51887) Diagnoses Anasarca associated with disorder of kidney N04.9 Other proteinuria R80.8 Proteinuria type: other IgA nephropathy N02.B9 Thin basement membrane disease N02.9
[2024-02-22 16:05] VITALS: BP 110/80; PULSE 94; O2SAT 95; BMI 25.3
== END 2024-02-22 16:32 | disposition home or self-care (01) ==
PROVIDERS: PCP Physician Assistant; Visit Provider Internal Medicine Nephrology
DX: N04.9 Nephrotic syndrome with unspecified morphologic changes (principal); R80.8 Other proteinuria; N02.B9 Other recurrent and persistent immunoglobulin A nephropathy; N02.9 Recurrent and persistent hematuria with unspecified morphologic changes
CPT/HCPCS: 99214

== ENCOUNTER → 2024-02-22 16:00 | Outpatient (BNVA) | payer OTHER, SELFPAY | PROVIDERS: PCP Physician Assistant; Visit Provider Internal Medicine Nephrology | DX: N04.9 Nephrotic syndrome with unspecified morphologic changes (principal); N02.9 Recurrent and persistent hematuria with unspecified morphologic changes; N02.B9 Other recurrent and persistent immunoglobulin A nephropathy; R80.8 Other proteinuria | CPT/HCPCS: 99212 ==

== ENCOUNTER 2024-03-16 12:26 | Outpatient (REF) | payer OTHER, SELFPAY ==
[2024-03-16 15:01] LABS: Creatinine Urine 65.64 mg/dL; Total Protein Urine Random < 7 mg/dL (<12)
[2024-03-16 15:06] LABS: Anion Gap 15 (12-20); Blood Urea Nitrogen 16 mg/dL (9-16); Carbon Dioxide 25 mmol/L (22-29); Chloride 103 mmol/L (96-108); Estimated Glomerular Filt Rate > 60; Potassium 3.7 mmol/L (3.3-5.1); Sodium 139 mmol/L (135-145)
[2024-03-16 15:07] LABS: TSH reflex Free T4 0.22 uIU/mL (0.32-4.0)
== END 2024-03-16 12:27 | disposition home or self-care (01) ==
LOC: HO.LAB 12:26
PROVIDERS: PCP Physician Assistant; Visit Provider Internal Medicine Nephrology
DX: N04.9 Nephrotic syndrome with unspecified morphologic changes (principal); R80.8 Other proteinuria
CPT/HCPCS: 36415; 80051; 82565; 82570; 84156; 84439; 84443; 84520

== ENCOUNTER 2024-04-06 15:24 | Outpatient (AMB) | payer OTHER, SELFPAY ==
[2024-04-06 15:30] VITALS: BP 124/72; PULSE 74; O2SAT 96; BMI 27.2
--- NOTE | 2024-04-06 15:30 | HO.NEPHOV ---
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 He had been seen by PCP , [facility] ER, [place] urgent care as well as in [facility] emergency room. He was told by physicians in [facility] that his thyroid functions were off and was started on levothyroxine. He continued to have workup without final diagnosis but noticed to have low albumin level . Etiology was not very clear but finally patient presented to [facility] Emergency room where he was found to have nephrotic range proteinuria and was determined that it is the cause of his anasarca. As per the patient he had two separate occasions very was given diuretics, once for 5 days and 1 time dose on another occasion. He denies any joint pains, skin rashes, epistaxis, sinusitis, sore throat, photosensitivity, history of drug use, history of hepatitis or HIV. He has no history of coronary artery disease, congestive heart failure, peripheral arterial disease, vascular disease, history of excessive nonsteroidal anti-inflammatory medication use, night sweats, fever. He has not traveled outside [facility] recently. All these symptoms have been getting worse over the last 3 months to a point now that he has penile swelling, scrotal swelling and subcutaneous edema on the flanks, back and abdomen. He was found to have nephrotic range proteinuria and was started on Prednisone, losartan and lasix with remarkable improvement. He had a renal biopsy which showed acute podocytopathy with IgA. He also had thin membrane disease. He was treated with prednisone and ARB. His edema has gone and his proteinuria has resolved. [facility] Surgical History Hx of tonsillectomy Social History Alcohol intake: never Patient Tobacco Use Status: Never used Tobacco e-Cigarette/Vaping Use: Currently Using Physical Exam Vital Signs: Last Vital Signs Pulse 74 04/06/24 15:30 BP 124/72 04/06/24 15:30 Pulse Ox 96 04/06/24 15:30 Oxygen Delivery Method Room Air 04/06/24 15:30 BMI result Body Mass Index 27.2 Const General: comfortable and no acute distress Orientation/consciousness: patient oriented x3 HEENT Head: Yes normocephalic Mouth: Normal oral and palatal mucosa present Eyes EOM: EOMs intact bilaterally Neck Neck: Yes supple Resp Auscultation: clear to auscultation bilaterally Cardio Jugular venous distension: no JVD Rate: regular rate GI Palpation (GI): Soft to palpation Auscultation: normal bowel sounds General: Yes no CVA tenderness Back/Spine/Pelvis Back: no CVA tenderness Skin General skin exam: no rashes or lesions noted Neuro General: patient oriented x3 and moves all extremities Extrem General: Yes no pedal edema Results Reviewed Nephrology Results: Sodium 139 mmol/L (135-145) 03/16/24 Potassium 3.7 mmol/L (3.3-5.1) 03/16/24 Chloride 103 mmol/L (96-108) 03/16/24 Carbon Dioxide 25 mmol/L (22-29) 03/16/24 BUN 16 mg/dL (9-16) 03/16/24 Creatinine 1.01 mg/dL (0.5-1.4) 03/16/24 Urine Creatinine 65.64 mg/dL 03/16/24 Protein/Creatinin Ratio TNP 03/16/24 Assessment & Plan Assessment & Plan (1) Thin basement membrane disease: Code(s): N02.9 - Recurrent and persistent hematuria with unspecified morphologic changes Category: Medical (2) IgA nephropathy: Code(s): 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 His renal functions are normal. workup so far negative. Renal biopsy showed acute podo cytopathy. He also had IgA and thin membrane disease. His proteinuria has resolved. He is euvolemic. He is off his diuretics. I reduced his prednisone by 10 mg every 2 weeks until he gets to 20 mg and was asked to remain at 20 mg daily. C/W PPI as well as current dose of ARB. He was also asked to cut back salt in the diet. He should be weighing himself every day. He is going to repeat his electrolytes and renal functions . All these have been discussed in detail. Patient has expressed his understanding. All questions answered. Follow-up appointment given. Orders: Orders Protein Creatinine Ratio, Ur 1 Month N02.9 - Recurrent and persistent hematuria with unspecified morphologic changes, N02.B9 - Other recurrent and persistent immunoglobulin A nephropathy, R80.8 - Other proteinuria Protein Creatinine Ratio, Ur 2 Months N02.9 - Recurrent and persistent hematuria with unspecified morphologic changes, N02.B9 - Other recurrent and persistent immunoglobulin A nephropathy, R80.8 - Other proteinuria Electrolytes 1 Month N02.9 - Recurrent and persistent hematuria with unspecified morphologic changes, N02.B9 - Other recurrent and persistent immunoglobulin A nephropathy, R80.8 - Other proteinuria Blood Urea Nitrogen 1 Month N02.9 - Recurrent and persistent hematuria with unspecified morphologic changes, N02.B9 - Other recurrent and persistent immunoglobulin A nephropathy, R80.8 - Other proteinuria Creatinine 2 Months N02.9 - Recurrent and persistent hematuria with unspecified morphologic changes, N02.B9 - Other recurrent and persistent immunoglobulin A nephropathy, R80.8 - Other proteinuria Blood Urea Nitrogen 2 Months N02.9 - Recurrent and persistent hematuria with unspecified morphologic changes, N02.B9 - Other recurrent and persistent immunoglobulin A nephropathy, R80.8 - Other proteinuria Creatinine 1 Month N02.9 - Recurrent and persistent hematuria with unspecified morphologic changes, N02.B9 - Other recurrent and persistent immunoglobulin A nephropathy, R80.8 - Other proteinuria Electrolytes 2 Months N02.9 - Recurrent and persistent hematuria with unspecified morphologic changes, N02.B9 - Other recurrent and persistent immunoglobulin A nephropathy, R80.8 - Other proteinuria Coding Level of Care Code Est Pt Level 4 (91141) Diagnoses Thin basement membrane disease N02.9 IgA nephropathy N02.B9 Other proteinuria R80.8 Proteinuria type: other
== END 2024-04-06 16:04 | disposition home or self-care (01) ==
PROVIDERS: PCP Physician Assistant; Visit Provider Internal Medicine Nephrology
DX: N02.9 Recurrent and persistent hematuria with unspecified morphologic changes (principal); N02.B9 Other recurrent and persistent immunoglobulin A nephropathy; R80.8 Other proteinuria
CPT/HCPCS: 99214

== ENCOUNTER → 2024-04-06 15:24 | Outpatient (BNVA) | payer OTHER, SELFPAY | PROVIDERS: PCP Physician Assistant; Visit Provider Internal Medicine Nephrology | DX: N02.9 Recurrent and persistent hematuria with unspecified morphologic changes (principal); N02.B9 Other recurrent and persistent immunoglobulin A nephropathy; R80.8 Other proteinuria; R60.1 Generalized edema | CPT/HCPCS: 99212 ==

== ENCOUNTER 2024-05-07 13:30 | Outpatient (REF) | payer OTHER, SELFPAY ==
[2024-05-07 14:26] LABS: Anion Gap 16 (12-20); Blood Urea Nitrogen 15 mg/dL (9-16); Carbon Dioxide 31 mmol/L (22-29); Chloride 99 mmol/L (96-108); Estimated Glomerular Filt Rate > 60; Potassium 4.2 mmol/L (3.3-5.1); Sodium 142 mmol/L (135-145)
[2024-05-07 14:32] LABS: Creatinine Urine 98.61 mg/dL; Total Protein Urine Random < 7 mg/dL (<12)
== END 2024-05-07 13:31 | disposition home or self-care (01) ==
LOC: HO.LAB 13:30
PROVIDERS: PCP Physician Assistant; Visit Provider Internal Medicine Nephrology
DX: N02.9 Recurrent and persistent hematuria with unspecified morphologic changes (principal); N02.B9 Other recurrent and persistent immunoglobulin A nephropathy; R80.8 Other proteinuria
CPT/HCPCS: 36415; 80051; 82565; 82570; 84156; 84520

== ENCOUNTER 2024-05-25 14:37 | Outpatient (REF) | payer OTHER, SELFPAY ==
[2024-05-25 15:31] LABS: Anion Gap 14 (12-20); Blood Urea Nitrogen 17 mg/dL (9-16); Carbon Dioxide 29 mmol/L (22-29); Chloride 102 mmol/L (96-108); Estimated Glomerular Filt Rate > 60; Potassium 3.9 mmol/L (3.3-5.1); Sodium 141 mmol/L (135-145)
[2024-05-25 15:31] LABS: Creatinine Urine 144.28 mg/dL; Protein/Creatinine Ratio, Ur 0.06 (<0.2); Total Protein Urine Random 8 mg/dL (<12)
== END 2024-05-25 14:38 | disposition home or self-care (01) ==
LOC: HO.LAB 14:37
PROVIDERS: PCP Physician Assistant; Visit Provider Internal Medicine Nephrology
DX: N02.9 Recurrent and persistent hematuria with unspecified morphologic changes (principal); N02.B9 Other recurrent and persistent immunoglobulin A nephropathy; R80.8 Other proteinuria
CPT/HCPCS: 36415; 80051; 82565; 82570; 84156; 84520

== ENCOUNTER 2024-06-01 14:55 | Outpatient (AMB) | payer OTHER, SELFPAY ==
[2024-06-01 15:15] VITALS: BP 118/80; PULSE 88; O2SAT 94; BMI 28.3
--- NOTE | 2024-06-01 15:15 | HO.NEPHOV_ITS ---
Vital Signs 06/01/24 15:15 Height 6 ft 1 in Weight 214 lb 4 oz BMI 28.3 BP 118/80 Blood Pressure Location Lt brachial Position Sitting Pulse 88 Pulse Source Pulse Oximeter Pulse Oximetry (%) 94 Oxygen Delivery Method Room Air Intake Visit Reasons: Proteinuria- LVM Icer Air Conditioning Required: No Accompanied by: Self / Same As Patient Allergies No Known Allergies Allergy (Verified 06/01/24 15:16) HPI Comments Details: 33 years old healthy nonalcoholic who has been having anasarca for last 3 months. He had been seen by PCP , [facility], [place] [facility] as well as in [facility] emergency room. He was told by physicians in [facility] that his thyroid functions were off and was started on levothyroxine. He continued to have workup without final diagnosis but noticed to have low albumin level . Etiology was not very clear but finally patient presented to [facility] Emergency room where he was found to have nephrotic range proteinuria and was determined that it is the cause of his anasarca. As per the patient he had two separate occasions very was given diuretics, once for 5 days and 1 time dose on another occasion. He denies any joint pains, skin rashes, epistaxis, sinusitis, sore throat, photosensitivity, history of drug use, history of hepatitis or HIV. He has no history of coronary artery disease, congestive heart failure, peripheral arterial disease, vascular disease, history of excessive nonsteroidal anti- inflammatory medication use, night sweats, fever. He has not traveled outside [facility] recently. All these symptoms have been getting worse over the last 3 months to a point now that he has penile swelling, scrotal swelling and subcutaneous edema on the flanks, back and abdomen. He was found to have nephrotic range proteinuria and was started on Prednisone, losartan and lasix with remarkable improvement. He had a renal biopsy which showed acute podocytopathy with IgA. He also had thin membrane disease. He was treated with prednisone and ARB. His edema has gone and his proteinuria has resolved. [facility] Surgical History Hx of tonsillectomy Social History Alcohol intake: never Patient Tobacco Use Status: Never used Tobacco e-Cigarette/Vaping Use: Currently Using Review of Systems Const All systems reviewed & are unremarkable except as noted in HPI and below Physical Exam Vital Signs: Last Vital Signs Pulse 88 06/01/24 15:15 BP 118/80 06/01/24 15:15 Pulse Ox 94 06/01/24 15:15 Oxygen Delivery Method Room Air 06/01/24 15:15 BMI result Body Mass Index 28.3 Const General: comfortable and no acute distress Orientation/consciousness: patient oriented x3 HEENT Head: Yes normocephalic Mouth: Normal oral and palatal mucosa present Eyes EOM: EOMs intact bilaterally Neck Neck: Yes supple Resp Auscultation: clear to auscultation bilaterally Cardio Jugular venous distension: no JVD Rate: regular rate GI Palpation (GI): Soft to palpation Auscultation: normal bowel sounds General: Yes no CVA tenderness Back/Spine/Pelvis Back: no CVA tenderness Skin General skin exam: no rashes or lesions noted Neuro General: patient oriented x3 and moves all extremities Extrem General: Yes no pedal edema Results Reviewed Nephrology Results: Sodium 141 mmol/L (135-145) 05/25/24 Potassium 3.9 mmol/L (3.3-5.1) 05/25/24 Chloride 102 mmol/L (96-108) 05/25/24 Carbon Dioxide 29 mmol/L (22-29) 05/25/24 BUN 17 mg/dL (9-16) H 05/25/24 Creatinine 0.99 mg/dL (0.5-1.4) 05/25/24 Urine Creatinine 144.28 mg/dL 05/25/24 Protein/Creatinin Ratio 0.06 (<0.2) 05/25/24 Assessment & Plan Assessment & Plan (1) Proteinuria: Code(s): R80.9 - Proteinuria, unspecified Category: Medical Qualifiers: Proteinuria type: other Qualified Code(s): R80.8 - Other proteinuria (2) 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 His renal functions are normal. workup so far negative. Renal biopsy showed acute podo cytopathy. He also had IgA and thin membrane disease. His proteinuria has resolved. He is euvolemic. He is off his diuretics. I reduced his prednisone to 10 mg daily. C/W current dose of ARB. He was also asked to cut back salt in the diet. He should be weighing himself every day. He is going to repeat his electrolytes and renal functions . All these have been discussed in detail. Patient has expressed his understanding. All questions answered. Follow-up appointment given. Orders: Orders Creatinine 2 Months N02.9 - Recurrent and persistent hematuria with unspecified morphologic changes, N02.B9 - Other recurrent and persistent immunoglobulin A nephropathy, R80.8 - Other proteinuria Blood Urea Nitrogen 2 Months N02.9 - Recurrent and persistent hematuria with unspecified morphologic changes, N02.B9 - Other recurrent and persistent immunoglobulin A nephropathy, R80.8 - Other proteinuria Protein Creatinine Ratio, Ur 2 Months N02.9 - Recurrent and persistent hematuria with unspecified morphologic changes, N02.B9 - Other recurrent and persistent immunoglobulin A nephropathy, R80.8 - Other proteinuria Electrolytes 2 Months N02.9 - Recurrent and persistent hematuria with unspecified morphologic changes, N02.B9 - Other recurrent and persistent immunoglobulin A nephropathy, R80.8 - Other proteinuria Coding Level of Care Code Est Pt Level 4 (13883) Diagnoses Other proteinuria R80.8 Proteinuria type: other IgA nephropathy N02.B9 Thin basement membrane disease N02.9
== END 2024-06-01 15:54 | disposition home or self-care (01) ==
PROVIDERS: PCP Physician Assistant; Visit Provider Internal Medicine Nephrology
DX: R80.8 Other proteinuria (principal); N02.B9 Other recurrent and persistent immunoglobulin A nephropathy; N02.9 Recurrent and persistent hematuria with unspecified morphologic changes
CPT/HCPCS: 99214

== ENCOUNTER → 2024-06-01 14:55 | Outpatient (BNVA) | payer OTHER, SELFPAY | PROVIDERS: PCP Physician Assistant; Visit Provider Internal Medicine Nephrology | DX: R80.8 Other proteinuria (principal); N02.B9 Other recurrent and persistent immunoglobulin A nephropathy; N02.9 Recurrent and persistent hematuria with unspecified morphologic changes | CPT/HCPCS: 99212 ==

== ENCOUNTER 2024-07-27 12:43 | Outpatient (REF) | payer OTHER, SELFPAY ==
[2024-07-27 15:09] LABS: Creatinine Urine 283.49 mg/dL; Protein/Creatinine Ratio, Ur 0.06 (<0.2); Total Protein Urine Random 16 mg/dL (<12)
[2024-07-27 15:27] LABS: Anion Gap 13 (12-20); Blood Urea Nitrogen 18 mg/dL (9-16); Carbon Dioxide 28 mmol/L (22-29); Chloride 103 mmol/L (96-108); Estimated Glomerular Filt Rate > 60; Potassium 3.8 mmol/L (3.3-5.1); Sodium 140 mmol/L (135-145)
== END 2024-07-27 12:44 | disposition home or self-care (01) ==
LOC: HO.LAB 12:43
PROVIDERS: PCP Physician Assistant; Visit Provider Internal Medicine Nephrology
DX: N02.B9 Other recurrent and persistent immunoglobulin A nephropathy (principal); R80.8 Other proteinuria; N02.9 Recurrent and persistent hematuria with unspecified morphologic changes
CPT/HCPCS: 36415; 80051; 82565; 82570; 84156; 84520

== ENCOUNTER 2024-08-08 12:12 | Outpatient (AMB) | payer OTHER, SELFPAY ==
--- NOTE | 2024-08-08 12:17 | HO.NEPHOV ---
Vital Signs 08/08/24 12:18 Height 6 ft 1 in Weight 209 lb 4 oz BMI 27.6 BP 102/70 Blood Pressure Location Lt brachial Position Sitting Pulse 81 Pulse Source Pulse Oximeter Pulse Oximetry (%) 95 Oxygen Delivery Method Room Air Intake Visit Reasons: 2MON F/U-Conf Compensation Supervisor Required: No Accompanied by: Self / Same As Patient Allergies No Known Allergies Allergy (Verified 08/08/24 12:18) HPI Comments Details: 33 years old with H/O anasarca was found to have nephrotic range proteinuria and was started on Prednisone, losartan and lasix with remarkable improvement. He had a renal biopsy which showed acute podocytopathy with IgA. He also had thin membrane disease. He was treated with prednisone and ARB. His edema has gone and his proteinuria has resolved. He feels well and is on low sodium diet with normal BP and stable volume status & renal function. He is seen in follow up today and doesn't have any new complaint PFSH Surgical History Hx of tonsillectomy Social History Alcohol intake: never Patient Tobacco Use Status: Never used Tobacco e-Cigarette/Vaping Use: Currently Using Review of Systems Const All systems reviewed & are unremarkable except as noted in HPI and below Physical Exam Vital Signs: Last Vital Signs Pulse 81 08/08/24 12:18 BP 102/70 08/08/24 12:18 Pulse Ox 95 08/08/24 12:18 Oxygen Delivery Method Room Air 08/08/24 12:18 BMI result Body Mass Index 27.6 Const General: comfortable and no acute distress Orientation/consciousness: patient oriented x3 HEENT Head: Yes normocephalic Mouth: Normal oral and palatal mucosa present Eyes EOM: EOMs intact bilaterally Neck Neck: Yes supple Resp Auscultation: clear to auscultation bilaterally Cardio Jugular venous distension: no JVD Rate: regular rate GI Palpation (GI): Soft to palpation Auscultation: normal bowel sounds General: Yes no CVA tenderness Back/Spine/Pelvis Back: no CVA tenderness Skin General skin exam: no rashes or lesions noted Neuro General: patient oriented x3 and moves all extremities Extrem General: Yes no pedal edema Results Reviewed Nephrology Results: Sodium 140 mmol/L (135-145) 07/27/24 Potassium 3.8 mmol/L (3.3-5.1) 07/27/24 Chloride 103 mmol/L (96-108) 07/27/24 Carbon Dioxide 28 mmol/L (22-29) 07/27/24 BUN 18 mg/dL (9-16) H 07/27/24 Creatinine 1.03 mg/dL (0.5-1.4) 07/27/24 Urine Creatinine 283.49 mg/dL 07/27/24 Protein/Creatinin Ratio 0.06 (<0.2) 07/27/24 Assessment & Plan Assessment & Plan (1) IgA nephropathy: Code(s): N02.B9 - Other recurrent and persistent immunoglobulin A nephropathy Category: Medical Plan Wayne had nephrotic syndrome. His renal functions are normal. workup so far negative. Renal biopsy showed acute podo cytopathy. He also had IgA and thin membrane disease. His proteinuria has resolved. He is euvolemic. He is off his diuretics. I reduced his prednisone to 7.5 mg daily. C/W current dose of ARB. He was also asked to cut back salt in the diet. He should be weighing himself every day. He is going to repeat his electrolytes and renal functions .Follow-up appointment given. Orders: Orders Creatinine 3 Months N02.B9 - Other recurrent and persistent immunoglobulin A nephropathy Blood Urea Nitrogen 3 Months N02.B9 - Other recurrent and persistent immunoglobulin A nephropathy Electrolytes 3 Months N02.B9 - Other recurrent and persistent immunoglobulin A nephropathy Protein Creatinine Ratio, Ur 3 Months N02.B9 - Other recurrent and persistent immunoglobulin A nephropathy Medications: Changed From losartan 25 mg PO BID 30 tabs 2RF To losartan 25 mg PO BID 90 days 180 tabs 2RF From prednisone 5 mg PO DAILY To prednisone 7.5 mg (3 x 2.5 mg) PO DAILY 30 days 90 tabs 4RF Coding Level of Care Code Est Pt Level 4 (59677) Diagnoses IgA nephropathy N02.B9
[2024-08-08 12:18] VITALS: BP 102/70; PULSE 81; O2SAT 95; BMI 27.6
== END 2024-08-08 12:37 | disposition home or self-care (01) ==
PROVIDERS: PCP Physician Assistant; Visit Provider Internal Medicine Nephrology
DX: N02.B9 Other recurrent and persistent immunoglobulin A nephropathy (principal)
CPT/HCPCS: 99214

== ENCOUNTER → 2024-08-08 12:12 | Outpatient (BNVA) | payer OTHER, SELFPAY | PROVIDERS: PCP Physician Assistant; Visit Provider Internal Medicine Nephrology | DX: N02.B9 Other recurrent and persistent immunoglobulin A nephropathy (principal) | CPT/HCPCS: 99212 ==

== ENCOUNTER 2024-10-31 14:52 | Outpatient (REF) | payer OTHER, SELFPAY ==
[2024-10-31 16:01] LABS: Anion Gap 11 (12-20); Blood Urea Nitrogen 13 mg/dL (9-16); Carbon Dioxide 27 mmol/L (22-29); Chloride 107 mmol/L (96-108); Estimated Glomerular Filt Rate > 60; Potassium 3.7 mmol/L (3.3-5.1); Sodium 141 mmol/L (135-145)
--- OUTSIDE RECORDS SUMMARY | 2024-10-31 16:08 | XMS_ITS | Clinical Summary ---
Author Organization [facility] ity Address [address] [place] [address] Care Team Providers Care Accounting Lecturer Name Role Phone Mariangel Mata MD Primary Care Provider Allergies Active Allergy Reactions Criticality Noted Date Comments Other High 03/29/2024 Medications predniSONE (DELTASONE) 10 mg tablet Take 6 tablets (60 mg total) by mouth 1 (one) time each day. 03/29/2024 Active losartan (COZAAR) 25 mg tablet Take 1 tablet (25 mg total) by mouth 1 (one) time each day. 03/29/2024 Active omeprazole (PriLOSEC) [address] capsule Take 1 capsule (20 mg total) by mouth 1 (one) time each day. 03/29/2024 Active albuterol HFA (PROAIR HFA ; PROVENTIL HFA ; VENTOLIN HFA) 90 mcg/actuation inhaler Inhale 2 puffs by mouth every 4 (four) hours if needed for wheezing (Cough). 03/29/2024 Active ascorbic acid, vitamin C, 500 mg powder in packet Take 1,000 mg by mouth 1 (one) time each day. Active cholecalciferol (VITAMIN D-3) 50 mcg (2,000 unit) capsule Take 50 mcg by mouth 1 (one) time each day. Active magnesium 250 mg tablet Take 4 tablets by mouth 1 (one) time each day. Active cyanocobalamin (VITAMIN B-12) 50 mcg tablet Take 1 tablet (50 mcg total) by mouth 1 (one) time each day. Active ZINC ORAL Take by mouth daily. Active Active Problems Problem Noted Date Diagnosed Date Mild intermittent asthma without complication Immunizations Name Administration Dates Next Due Influenza Quadravalent, MDCK , 0.5ml, with preservative (Flucelvax) 6mo and older 06/13/2017 Influenza trivalent, 0.5mL, preservative free (Fluarix; FluLaval; Fluzone) ages 6mo and older (Afluria) 3 years and older 07/12/2014,08/28/2012 Tdap Tetanus diptheria acell ular pertussis (Boostrix; Adacel) 7yo and older 12/20/2023,08/28/2012 Surgical History Surgery Date Site/Laterality Comments TONSILLECTOMY PROCEDURE: HISTORICAL TONSILLECTOMY WISDOM TOOTH EXTRACTION PROCEDURE: HISTORICAL WISDOM TEETH EXTRACTION Medical History Medical History Date Comments Asthma DX:Asthma Nephrotic syndrome with morp hologic change DX:Nephrotic syndrome with m orphologic change Family History Medical History Relation Name Comments Alzheimer's disease Maternal Grandmother Asthma Mother Relation Name Status Comments Brother Alive Father Alive Maternal Grandmother asthma Mother Alive asthma Sister Alive Social History Tobacco Use Types Packs/Day Years Used Date Smoking Tobacco: Every Day Smokeless Tobacco: Never Alcohol Use Standard Drinks/Week Comments Not Currently 0 (1 standard drink = 0.6 oz pur e alcohol) Sex and Gender Information Value Date Recorded Sex Assigned at Not on file Legal Sex Male 11:11 AM EST Gender Identity Not on file Sexual Orientation Not on file Obstetrics History Last Filed Vital Signs Vital Sign Reading Time Taken Comments Blood Pressure 133/75 03/29/2024 3:33 PM EDT Pulse 72 03/29/2024 3:33 PM EDT Temperature - - Respiratory Rate - - Oxygen Saturation - - Inhaled Oxygen Concentration - - Weight 91.9 kg (202 lb 9.6 oz) 03/29/2024 3:33 P M EDT Height 200.7 cm (6' 7 ) 03/29/2024 3:33 PM EDT Body Mass Index 22.82 03/29/2024 3:33 PM EDT Plan of Treatment Upcoming Encounters Date Type Department Care Team (Late st Contact Info) Description 12/28/2024 2:00 PM EDT Office Visit Adult Medicine - [address] [phone] Paul Hamilton PA [address] [place] [address] Health Maintenance Due Date Last Done Comments COVID-19 Vaccine (#1) 1996 Pneumococcal Vaccine: Pediatrics (0 to 5 Years) and At-Risk Patients (6 to 64 Years) (1 of 2 - PCV) 1997 Hepatitis B Vaccines (1 of 3 - 19+ 3-dose series) 2010 Depression Screening 08/17/2022 HIV Screening 08/17/2022 Social Influencers of Health Screening 08/17/2022 Cholesterol Screening (Lipid Panel) 12/20/2023 12/19/2018 Influenza Vaccine (#1) 2024 7, 07/12/2014, 08/28/2012 DTaP,Tdap,and Td Vaccines (3 - Td or Tdap) 12/19/2033 12/20/2023, 08/28/2012 Hepatitis C Screening Completed 12/09/2023 HIB Vaccines Aged Out No longer eligi ble based on patient's age to complete this topic HPV Vaccines Aged Out No longer eligi ble based on patient's age to complete this topic Hepatitis A Vaccines Aged Out No long er eligible based on patient's age to complete this topic IPV Vaccines Aged Out No longer eligi ble based on patient's age to complete this topic MMR Vaccines Aged Out No longer eligi ble based on patient's age to complete this topic Meningococcal ACWY Vaccine Aged Out N o longer eligible based on patient's age to complete this topic RSV Immunization Patients Under 20 months Aged Out No longer eligible b ased on patient's age to complete this topic Varicella Vaccines Aged Out No longer eligible based on patient's age to complete this topic Procedures Procedure Name Priority Date/Time Associated Diagnosis Comments HEPATITIS C SCREENING Routine 12/09/2023 LIPID PANEL Routine 12/19/2018 from Last 3 Months or Most Recently Relevant to Health Maintenance Results * Hepatitis C Screening (12/09/2023) Hepatitis C Screening Abstracted us Historical Provider HEALTH MAINTENANCE Final Result * (ABNORMAL) Lipid panel (12/19/2018) LDL/HDL Ratio 3 0 - 4 Triglycerides 94 0 - 150 mg/dL Cholesterol 123 0 - 200 mg/dL HDL 36(A) >=40 mg/dL LDL Cholesterol 69 0 - 100 mg/dL Blood Venous blood specimen / Unknown us Historical Provider LAB BLOOD ORDERABLES Therese l Result from Last 3 Months or Most Recently Relevant to Health Maintenance Care Teams Accounting Lecturer Relationship Specialty Start Date End Date Mariangel Mata MD PCP - General 11/16/23
[2024-10-31 16:29] LABS: Creatinine Urine 257.61 mg/dL; Protein/Creatinine Ratio, Ur 0.07 (<0.2); Total Protein Urine Random 18 mg/dL (<12)
== END 2024-10-31 14:53 | disposition home or self-care (01) ==
LOC: HO.LAB 14:52
PROVIDERS: PCP Physician Assistant; Visit Provider Internal Medicine Nephrology
DX: N02.B9 Other recurrent and persistent immunoglobulin A nephropathy (principal)
CPT/HCPCS: 36415; 80051; 82565; 82570; 84156; 84520

== ENCOUNTER 2024-11-09 09:36 | Outpatient (AMB) | payer OTHER, SELFPAY ==
--- NOTE | 2024-11-09 09:42 | HO.NEPHOV ---
Vital Signs 11/09/24 09:43 Height 6 ft 1 in Weight 204 lb 8 oz BMI 27.0 BP 122/80 Blood Pressure Location Lt brachial Position Sitting Pulse 77 Pulse Source Pulse Oximeter Pulse Oximetry (%) 95 Oxygen Delivery Method Room Air Intake Visit Reasons: IgA nephropathy/ LVM Direct Marketing Coordinator Required: No Accompanied by: Self / Same As Patient Allergies No Known Allergies Allergy (Verified 11/09/24 09:43) HPI Comments Details: 33 years old with H/O anasarca was found to have nephrotic range proteinuria and was started on Prednisone, losartan and lasix with remarkable improvement. He had a renal biopsy which showed acute podocytopathy with IgA. He also had thin membrane disease. He was treated with prednisone and ARB. His edema has gone and his proteinuria has resolved. He feels well and is on low sodium diet with normal BP and stable volume status & renal function. He is seen in follow up today and doesn't have any new complaint PFSH Surgical History Hx of tonsillectomy Social History Alcohol intake: never Patient Tobacco Use Status: Never used Tobacco e-Cigarette/Vaping Use: Currently Using Review of Systems Const All systems reviewed & are unremarkable except as noted in HPI and below Physical Exam Const General: comfortable and no acute distress Orientation/consciousness: patient oriented x3 HEENT Head: Yes normocephalic Mouth: Normal oral and palatal mucosa present Eyes EOM: EOMs intact bilaterally Neck Neck: Yes supple Resp Auscultation: clear to auscultation bilaterally Cardio Jugular venous distension: no JVD Rate: regular rate GI Palpation (GI): Soft to palpation Auscultation: normal bowel sounds General: Yes no CVA tenderness Back/Spine/Pelvis Back: no CVA tenderness Skin General skin exam: no rashes or lesions noted Neuro General: patient oriented x3 and moves all extremities Extrem General: Yes no pedal edema Results Reviewed Nephrology Results: Sodium 141 mmol/L (135-145) 10/31/24 Potassium 3.7 mmol/L (3.3-5.1) 10/31/24 Chloride 107 mmol/L (96-108) 10/31/24 Carbon Dioxide 27 mmol/L (22-29) 10/31/24 BUN 13 mg/dL (9-16) 10/31/24 Creatinine 0.87 mg/dL (0.5-1.4) 10/31/24 Urine Creatinine 257.61 mg/dL 10/31/24 Protein/Creatinin Ratio 0.07 (<0.2) 10/31/24 Assessment & Plan Assessment & Plan (1) Thin basement membrane disease: Code(s): N02.9 - Recurrent and persistent hematuria with unspecified morphologic changes Category: Medical (2) IgA nephropathy: Code(s): 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 His renal functions are normal. workup so far negative. Renal biopsy showed acute podo cytopathy. He also had IgA and thin membrane disease. His proteinuria has resolved. He is euvolemic. He is off his diuretics. I reduced his prednisone to 5 mg daily. C/W current dose of ARB. He was also asked to cut back salt in the diet. He should be weighing himself every day. He is going to repeat his electrolytes and renal functions .Follow-up appointment given. Orders: Orders Protein Creatinine Ratio, Ur 3 Months N02.9 - Recurrent and persistent hematuria with unspecified morphologic changes, N02.B9 - Other recurrent and persistent immunoglobulin A nephropathy, R80.8 - Other proteinuria Creatinine 3 Months N02.9 - Recurrent and persistent hematuria with unspecified morphologic changes, N02.B9 - Other recurrent and persistent immunoglobulin A nephropathy, R80.8 - Other proteinuria Blood Urea Nitrogen 3 Months N02.9 - Recurrent and persistent hematuria with unspecified morphologic changes, N02.B9 - Other recurrent and persistent immunoglobulin A nephropathy, R80.8 - Other proteinuria Electrolytes 3 Months N02.9 - Recurrent and persistent hematuria with unspecified morphologic changes, N02.B9 - Other recurrent and persistent immunoglobulin A nephropathy, R80.8 - Other proteinuria Medications: Changed From prednisone 7.5 mg (3 x 2.5 mg) PO DAILY 30 days 90 tabs 4RF To prednisone 5 mg (2 x 2.5 mg) PO DAILY 30 days 60 tabs 4RF Coding Level of Care Code Est Pt Level 4 (77166) Diagnoses Thin basement membrane disease N02.9 IgA nephropathy N02.B9 Other proteinuria R80.8 Proteinuria type: other
[2024-11-09 09:43] VITALS: BP 122/80; PULSE 77; O2SAT 95; BMI 27.0
--- OUTSIDE RECORDS SUMMARY | 2024-11-09 10:10 | XMS_ITS | Clinical Summary ---
Author Organization [facility] ity Address [address] [place] [address] Care Team Providers Care Terrazzo Polisher Name Role Phone Mariangel Mata MD Primary [...] PM EDT Office Visit Adult Medicine - [address] [phone] Paul Hamilton PA [address] [place] [address] Health Maintenance Due Date Last Done Comments COVID-19 Vaccine (#1) 1996 Hepatitis B Vaccines (1 of 3 - 19+ 3-dose series) 2010 Pneumococcal Vaccine: Pediatrics (0 to 5 Years) and At-Risk Patients (6 to 64 Years) (1 of 2 - PCV) 2010 Depression Screening 08/17/2022 HIV Screening 08/17/2022 [...] patient's age to complete this topic Meningococcal B Vacine Aged Out No lo nger eligible based on patient's age to complete this topic RSV Immunization Patients Under 20 months Aged Out No longer eligible b ased on patient's age to complete this topic Varicella Vaccines Aged Out No longer eligible based on patient's age to complete this topic Procedures Procedure Name Priority Date/Time Associated Diagnosis Comments EXTERNAL CLINICAL LAB 10/31/2024 HEPATITIS C SCREENING Routine 12/09/2023 LIPID PANEL Routine 12/19/2018 from Last 3 Months or Most Recently Relevant to Health Maintenance Results * External clinical lab (10/31/2024) us Provider [facility] LAB BLOOD ORDERABLES Fin al Result * Hepatitis C Screening (12/09/2023) Hepatitis C [...] Recently Relevant to Health Maintenance Care Teams Terrazzo Polisher Relationship Specialty Start Date End Date Mariangel Mata MD PCP - General 11/16/23
== END 2024-11-09 09:52 | disposition home or self-care (01) ==
PROVIDERS: PCP Physician Assistant; Visit Provider Internal Medicine Nephrology
DX: N02.9 Recurrent and persistent hematuria with unspecified morphologic changes (principal); N02.B9 Other recurrent and persistent immunoglobulin A nephropathy; R80.8 Other proteinuria
CPT/HCPCS: 99214

== ENCOUNTER → 2024-11-09 09:36 | Outpatient (BNVA) | payer OTHER, SELFPAY | PROVIDERS: PCP Physician Assistant; Visit Provider Internal Medicine Nephrology ==

== ENCOUNTER 2025-06-05 09:01 | Outpatient (REF) | payer OTHER, SELFPAY ==
[2025-06-05 10:16] LABS: Anion Gap 9 (12-20); Blood Urea Nitrogen 15 mg/dL (9-16); Carbon Dioxide 31 mmol/L (22-29); Chloride 105 mmol/L (96-108); Estimated Glomerular Filt Rate > 60; Potassium 3.8 mmol/L (3.3-5.1); Sodium 141 mmol/L (135-145)
--- OUTSIDE RECORDS SUMMARY | 2025-06-05 10:39 | XMS_ITS | Clinical Summary ---
Author Organization [facility] Address [address] [address] Phone Care Team Providers Care Geographic Analyst Name Role Phone Pcp, Unknown Primary Care Provider Unavailabl e Allergies No known active allergies Medications levothyroxine (SYNTHROID, LEVOTHROID) 150 MCG tablet Take 1 tablet (150 mcg total) by mouth every morning. 30 tablet 12/29/2023 Active Social History Tobacco Use Types Packs/Day Years Used Date Smoking Tobacco: Never Assessed Education Answer Date Recorded Are you interested in more education? Not on eddie e 12/29/2023 Are you concerned about learning? Not on file 12/29/2023 No 12/29/2023 No 12/29/2023 Digital Access Answer Date Recorded No 12/29/2023 No 12/29/2023 Reliable internet access at home? Not on file 12/29/2023 Device with a working camera? Not on file Intimate Partner Violence Answer Date R ecorded Are you denied basic needs s uch as food, clothing, or medical care? No 12/29/2023 In the past 12 months have y ou been in a relationship with a person who hurts, threatens, or tries to control you? No 12/29/2023 Are you denied basic needs s uch as food, clothing, or medical care? No 12/29/2023 In the past 12 months have y ou been in a relationship with a person who hurts, threatens, or tries to control you? No 12/29/2023 Sex and Gender Information Value Date Recorded Sex Assigned at Not on file Legal Sex Male 1:39 AM EDT Gender Identity Not on file Sexual Orientation Not on file Last Filed Vital Signs Vital Sign Reading Time Taken Comments Blood Pressure 127/82 12/29/2023 5:18 AM EDT Pulse 68 12/29/2023 5:18 AM EDT Temperature 36.8 C (98.3 F) 12/29/2023 1:50 AM EDT Respiratory Rate 18 12/29/2023 5:18 AM EDT Oxygen Saturation 96% 12/29/2023 5:18 AM EDT Inhaled Oxygen Concentration - - Weight - - Height - - Body Mass Index - - Plan of Treatment Not on file Medical Devices Not on file Insurance [employer] [address] [place], [place] [address] [email or web address] Care Teams Geographic Analyst Relationship Specialty Start Date End Date Pcp, Unknown PCP - General 12/29/23 Additional Source Comments The information contained in this document represents components of the legal health record. It is not the complete legal health record.[facility]
--- OUTSIDE RECORDS SUMMARY | 2025-06-05 10:39 | XMS_ITS ---
Author Name [facility] Organization Unknown Care Team Organization Name Specialty Phone Email Start Date End Da te [facility] Stephani Lilly Primary Care 01/24/20232023 [facility] Yovany Zhou Primary Care 07/27/2022
[2025-06-05 13:32] LABS: Total Protein Urine Random < 7 mg/dL (<12)
== END 2025-06-05 09:02 | disposition home or self-care (01) ==
LOC: HO.LAB 09:01
PROVIDERS: Visit Provider Internal Medicine Nephrology
DX: N02.9 Recurrent and persistent hematuria with unspecified morphologic changes (principal); N02.B9 Other recurrent and persistent immunoglobulin A nephropathy; R80.8 Other proteinuria
CPT/HCPCS: 36415; 80051; 82565; 82570; 84156; 84520

== ENCOUNTER 2025-06-12 14:40 | Outpatient (AMB) | payer OTHER, SELFPAY ==
--- NOTE | 2025-06-12 14:45 | HO.NEPHOV_ITS ---
Vital Signs 06/12/25 14:58 Height 6 ft 1 in Weight 191 lb BMI 25.2 BP 124/80 Blood Pressure Location Rt brachial Position Sitting Pulse 74 Pulse Source Pulse Oximeter Pulse Oximetry (%) 97 Oxygen Delivery Method Room Air Intake Visit Reasons: f/u-LVM [employer]oring [employer] Operator Required: No Accompanied by: Self / Same As Patient Allergies No Known Allergies Allergy (Verified 06/12/25 14:58) HPI Comments Details: 33 years old with H/O anasarca was found to have nephrotic range proteinuria and was started on Prednisone, losartan and lasix with remarkable improvement. He had a renal biopsy which showed acute podocytopathy with IgA. He also had thin membrane disease. He was treated with prednisone and ARB. His edema has gone and his proteinuria has resolved. He feels well and is on low sodium diet with normal BP and stable volume status & renal function. He has not taken pred nisone or losartan. He is seen in follow up today and doesn't have any new complaint PFSH Surgical History Hx of tonsillectomy Social History Alcohol intake: never Patient Tobacco Use Status: Never used Tobacco e-Cigarette/Vaping Use: Currently Using Review of Systems Const All systems reviewed & are unremarkable except as noted in HPI and below Physical Exam Vital Signs: Last Vital Signs Pulse 74 06/12/25 14:58 BP 124/80 06/12/25 14:58 Pulse Ox 97 06/12/25 14:58 Oxygen Delivery Method Room Air 06/12/25 14:58 BMI result Body Mass Index 25.2 Const General: comfortable and no acute distress Orientation/consciousness: patient oriented x3 HEENT Head: Yes normocephalic Mouth: Normal oral and palatal mucosa present Eyes EOM: EOMs intact bilaterally Neck Neck: Yes supple Resp Auscultation: clear to auscultation bilaterally Cardio Jugular venous distension: no JVD Rate: regular rate GI Palpation (GI): Soft to palpation Auscultation: normal bowel sounds General: Yes no CVA tenderness Back/Spine/Pelvis Back: no CVA tenderness Skin General skin exam: no rashes or lesions noted Neuro General: patient oriented x3 and moves all extremities Extrem General: Yes no pedal edema Results Reviewed Nephrology Results: Sodium, (135-145) 141 mmol/L 06/05/25 Potassium, (3.3-5.1) 3.8 mmol/L 06/05/25 Chloride, (96-108) 105 mmol/L 06/05/25 Carbon Dioxide, (22-29) 31 mmol/L H 06/05/25 BUN, (9-16) 15 mg/dL 06/05/25 Creatinine, (0.5-1.4) 0.94 mg/dL 06/05/25 Urine Creatinine 98.60 mg/dL 06/05/25 Protein/Creatinin Ratio TNP 06/05/25 Assessment & Plan Assessment & Plan (1) Thin basement membrane disease: Code(s): 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 His renal functions are normal. workup so far negative. Renal biopsy showed acute podo cytopathy. He also had IgA and thin membrane disease. His proteinuria has resolved. He is euvolemic. He is off his diuretics. He can off prednisone and ARB. He was also asked to cut back salt in the diet. He is going to repeat his electrolytes and renal functions .Follow-up appointment given. Orders: Orders Protein Creatinine Ratio, Ur 6 Months N02.9 - Recurrent and persistent hematuria with unspecified morphologic changes, N02.B9 - Other recurrent and persistent immunoglobulin A nephropathy, N04.9 - Nephrotic syndrome with unspecified morphologic changes, R80.8 - Other proteinuria Creatinine 6 Months N02.9 - Recurrent and persistent hematuria with unspecified morphologic changes, N02.B9 - Other recurrent and persistent immunoglobulin A nephropathy, N04.9 - Nephrotic syndrome with unspecified morphologic changes, R80.8 - Other proteinuria Electrolytes 6 Months N02.9 - Recurrent and persistent hematuria with unspecified morphologic changes, N02.B9 - Other recurrent and persistent immunoglobulin A nephropathy, N04.9 - Nephrotic syndrome with unspecified morphologic changes, R80.8 - Other proteinuria Blood Urea Nitrogen 6 Months N02.9 - Recurrent and persistent hematuria with unspecified morphologic changes, N02.B9 - Other recurrent and persistent immunoglobulin A nephropathy, N04.9 - Nephrotic syndrome with unspecified morphologic changes, R80.8 - Other proteinuria Coding Level of Care Code Est Pt Level 4 (84107) Diagnoses Thin basement membrane disease N02.9 Other proteinuria R80.8 Proteinuria type: other IgA nephropathy N02.B9 Anasarca associated with disorder of kidney N04.9
[2025-06-12 14:58] VITALS: BP 124/80; PULSE 74; O2SAT 97; BMI 25.2
--- OUTSIDE RECORDS SUMMARY | 2025-06-12 17:16 | XMS_ITS | Clinical Summary ---
Author Organization [facility] Address [address] [address] Phone Care Team Providers Care Railway Engineer Name Role Phone Pcp, Unknown Primary Care [...] file Medical Devices Not on file [employer] [address] [place], [place] [id number] Care Teams Railway Engineer Relationship Specialty Start Date End Date Pcp, Unknown PCP - General 12/29/23 Additional Source Comments The information contained in this document represents components of the legal health record. It is not the complete legal health record.[facility]
== END 2025-06-12 15:13 | disposition home or self-care (01) ==
LOC: HO.HKA 14:41
PROVIDERS: PCP Physician Assistant; Visit Provider Internal Medicine Nephrology
DX: N02.9 Recurrent and persistent hematuria with unspecified morphologic changes (principal); R80.8 Other proteinuria; N02.B9 Other recurrent and persistent immunoglobulin A nephropathy; N04.9 Nephrotic syndrome with unspecified morphologic changes
CPT/HCPCS: 99214